=== PATIENT | female | born 1980 | race African-American/Black ===

== ENCOUNTER 2016-10-31 13:59 | Observation (INO) | payer OTHER ==
[~2016-10-31] VITALS: Ht 172.7 cm; Wt 68.1 kg
[~2016-10-31 13:59] MED LIST: ONDANSETRON HCL 4 MG/2 ML VIAL IV PUSH ONE; PROPOFOL 200 MG/20 ML AMP IV ONE
--- NOTE | 2016-10-31 14:10 | PD ---
HPI Chief Complaint: vaginal bleeding, miscarriage Time Seen by Provider: 14:07 Travel History International Travel<30 days: No Contact w/Intl Traveler<30days: No Traveled to known affect area: No History of Present Illness HPI 35-year-old female came to the emergency room with history of severe pelvic cramps and vaginal bleeding. Patient was brought by EMS from the airport. Patient is from [place] and was on her way back home when she started having the severe contractions. Patient had her last menstrual period in August 12, 2016. She was confirmed to be intrauterine in [place] and at that time she was told she was 6 weeks . However since past 4 days she has been having vaginal bleeding. She says the bleeding got worse yesterday and since 7 this morning she started having the cramps. She took Motrin but when she did not feel better she called 911. Patient is A1. She vomited once en route. Patient seems extremely uncomfortable. As soon as I went to see her she wanted something for pain and she said. PFSH Past Medical History Narrative Medical List of her past medical, social and family history as reviewed from the nursing note. Social History Tobacco Use: Yes Allergies-Medications (Allergen,Severity, Reaction): Coded Allergies: No Known Allergies (Unverified , 10/31/16) Comments No known drug allergies. Reported Meds & Prescriptions Reported Meds & Active Scripts Active Narrative Medication Awaiting for the nurse to the medical reconciliation. Review of Systems Except as stated in HPI: all other systems reviewed are Neg Physical Exam Narrative GENERAL: Awake, alert, anxious, significant distress SKIN: Warm and dry. HEAD: Atraumatic. Normocephalic. EYES: Pupils equal and round. No scleral icterus. No injection or drainage. ENT: No nasal bleeding or discharge. Mucous membranes pink and moist. NECK: Trachea midline. No JVD. CARDIOVASCULAR: Regular rate and rhythm. No murmur appreciated. RESPIRATORY: No accessory muscle use. Clear to auscultation. Breath sounds equal bilaterally. GASTROINTESTINAL: Abdomen soft, non-tender, nondistended. Hepatic and splenic margins not palpable. : External inspection showed some dried blood around the vaginal area. There was significant amount of blood in the vaginal vault. The blood soaked the large cotton swabs. The visual field was clear at this point and large part of conception was noticed to be coming out of the cervical os MUSCULOSKELETAL: No obvious deformities. No clubbing. No cyanosis. No edema. NEUROLOGICAL: Awake and alert. No obvious cranial nerve deficits. Motor grossly within normal limits. Normal speech. PSYCHIATRIC: Appropriate mood and affect; insight and judgment normal. Data Data Last Documented VS Orders Beta Hcg (Quant/Titer) (10/31/16 14:07) Complete Blood Count With Diff (10/31/16 14:07) Basic Metabolic Panel (Bmp) (10/31/16 14:07) Type And Screen (10/31/16 14:07) Ondansetron Inj (Zofran Inj) (10/31/16 14:15) Ed Poc Ultrasound (10/31/16 14:07) Morphine Inj (Morphine Inj) (10/31/16 14:15) Morphine Inj (Morphine Inj) (10/31/16 14:45) Sodium Chlor 0.9% 1000 Ml Inj (Ns 1000 M (10/31/16 14:45) Admit Order (Ed Use Only) (10/31/16 16:01) Labs MDM Medical Decision Making Medical Screen Exam Complete: Yes Emergency Medical Condition: Yes Medical Record Reviewed: Yes Differential Diagnosis Incomplete , inevitable Narrative Course 3:30 PM based on the history, pelvic exam and a bedside ultrasound I spoke with the OB occupational health professional Dr. Kaplan. I requested him to come and assess the patient. Patient was given pain medications twice by me. I just reassessed her and she seems more calm and comfortable at this point. She has been strongly requesting for a D&C. I mentioned this to the OB. Patient is O+ blood group and the beta hCG Quant was mentioned to him as well. Patient remains hemodynamically stable. H&H is stable. She is currently nothing by mouth. 3:[address] Kaplan is here to evaluate the patient and let me know his decision. 4:[address] Kaplan wants the patient to go to the OR to get the D&C. I have admitted her for observation. Critical Care Narrative Aggregate critical care time was 45 minutes. Time to perform other separately billable procedures was not included in the critical care time. My time did not include minutes spent treating any other patients simultaneously or on activities that did not directly contribute to the patient's treatment. The services I provided to this patient were to treat and/or prevent clinically significant deterioration that could result in: Incomplete , hemorrhage, intractable pain I provided critical care services requiring my management, as noted below: Chart data review, documentation time, medication orders and management, vital sign assessments/reviewing monitor data, ordering and reviewing lab tests, ordering and interpreting/reviewing x-rays and diagnostic studies, care of the patient and discussion of the patient with the admitting physicians. Procedures Procedure Narrative Emergency Department Pelvic ultrasound was performed with patient consent. The curvilinear probe was used in the transverse and sagittal views within the suprapubic region revealing no intrauterine and no gestational sac. There is heterogeneous probably products of conception and blood in the uterus. EKG Prior to Arrival: No Physician Communication Physician Communication Dr. Kaplan Diagnosis Primary Impression: Incomplete Additional Impression: Pelvic pain Admitting Information Admitting Physician Requests: Observation Scripts Oxycodone-Acetaminophen 5-325 mg Tab2 Tab PO Q4H PRN (pain 6-10) #30 TAB Prov:Albino Ferreira MD 11/01/16 Estelle Reese MD Oct 31, 2016 14:09 Rate Random Glucose 131 MG/DL Calcium Level 9.6 MG/DL Human Chorionic Gonadotropin, [address] MIU/ML Quant Blood Type O POSITIVE Antibody Screen NEGATIVE Blood Bank Comment MDM Medical Decision Making Medical Screen Exam Complete: Yes Emergency Medical Condition: Yes Medical Record Reviewed: Yes Differential Diagnosis Incomplete , inevitable Narrative Course 3:30 PM based on the history, pelvic exam and a bedside ultrasound I spoke with the OB occupational health professional Dr. Kaplan. I requested him to come and assess the patient. Patient was given pain medications twice by me. I just reassessed her and she seems more calm and comfortable at this point. She has been strongly requesting for a D&C. I mentioned this to the OB. Patient is O+ blood group and the beta hCG Quant was mentioned to him as well. Patient remains hemodynamically stable. H&H is stable. She is currently nothing by mouth. 3:[address] Kaplan is here to evaluate the patient and let me know his decision. 4:[address] Kpalan wants the patient to go to the OR to get the D&C. I have admitted her for observation. Procedures Procedure Narrative Emergency Department Pelvic ultrasound was performed with patient consent. The curvilinear probe was used in the transverse and sagittal views within the suprapubic region revealing no intrauterine and no gestational sac. There is heterogeneous probably products of conception and blood in the uterus. EKG Prior to Arrival: No Physician Communication Physician Communication Dr. Kaplan Diagnosis Primary Impression: Incomplete Additional Impression: Pelvic pain Admitting Information Admitting Physician Requests: Observation Estelle Reese MD Oct 31, 2016 14:09
[2016-10-31 14:12] VITALS: BP 135/78; PULSE 77; RESP 14; TEMP 97.8; O2SAT 100
[2016-10-31] MEDS ORDERED: ONDANSETRON HCL 4 MG/2 ML VIAL IVP ONE (14:15)
[2016-10-31] MEDS ORDERED: MORPHINE SULFATE 4 MG/ML INJ IV PUSH ONE ×2 (14:15→14:45)
[2016-10-31 14:36] LABS: AUTOMATED NEUTROPHIL # 7.8 TH/MM3 (1.8-7.7); BASOPHIL # 0.1 TH/MM3 (0-0.2); BASOPHIL % 0.5 % (0.0-2.0); EOSINOPHIL % 0.1 % (0.0-4.0); HEMATOCRIT 34.7 % (35.0-46.0); HEMO FLAGS DIFF FINAL; LYMPHOCYTE # 2.5 TH/MM3 (1.0-4.8); MEAN CELL VOLUME 91.5 FL (80.0-100.0); MEAN CORPUSCULAR HEMOGLOBIN 30.9 PG (27.0-34.0); MEAN CORPUSCULAR HGB CONC 33.8 % (32.0-36.0); MONO % 5.6 % (0.0-8.0); NEUT % 70.8 % (16.0-70.0); PLATELET COUNT 224 TH/MM3 (150-450); RED BLOOD COUNT 3.79 MIL/MM3 (4.00-5.30); RED CELL DISTRIBUTION WIDTH 13.3 % (11.6-17.2); WHITE BLOOD COUNT 11.1 TH/MM3 (4.0-11.0)
[2016-10-31] MEDS ORDERED: SODIUM CHLOR 0.9% 1000 ML INJ 1,000 ML IV ONE (14:45)
[2016-10-31 14:55] LABS: BICARBONATE 22.1 MEQ/L (21.0-32.0); POTASSIUM 3.7 MEQ/L (3.5-5.1)
--- NOTE | 2016-10-31 16:11 | PD.CONS ---
HPI Chief Complaint Abdominal pain, Date Seen: Oct 31, 2016 Time Seen: 16:13 Travel History International Travel<30 Days: No Contact w/Intl Traveler<30Days: No Known Affected Area: No History of Present Illness HPI Patient is a 35-year-old AB 1 from [place] who presents to the ED with severe abdominal pain she got an ultrasound last week which showed a gestational sac without status. Allergies-Medications (Allergen,Severity, Reaction): Coded Allergies: No Known Allergies (Unverified , 10/31/16) Physical Exam Vital Signs Date Time Temp Pulse Resp B/P Pulse Ox O2 Delivery O2 Flow Rate FiO2 10/31/16 14:12 97.8 77 14 135/78 100 Narrative GENERAL: Well-nourished, well-developed female patient. SKIN: Warm and dry. HEAD: Normocephalic and atraumatic. EYES: No scleral icterus. No injection or drainage. ENT: No nasal drainage noted. Mucous membranes pink. Airway patent. NECK: Supple, trachea midline. No JVD. CARDIOVASCULAR: Regular rate and rhythm without murmurs, gallops, or rubs. RESPIRATORY: Breath sounds equal bilaterally. No accessory muscle use. BREASTS: Bilateral exam showed no masses , no retractions, no nipple discharge. ABDOMEN/GI: Abdomen soft, non-tender, bowel sounds present, no rebound, no guarding Gravid to [-] weeks size Fundal Height: [-] GENITOURINARY: External Genitalia: intact and normal in appearance BUS glands: [-] Cervix: [-] Dilatation: [-] Effacement: [-] Station: [-] Presentation: [-] Membranes: [intact or ruptured] Uterine Contractions: [-] FHT's: Category: [-] Baseline: [-] Reactive: [-] Variability: [-] Decels: [-] EXTREMITIES: No cyanosis or edema. BACK: Nontender without obvious deformity. No CVA tenderness. NEUROLOGICAL: Awake and alert. Motor and sensory grossly within normal limits. Five out of 5 muscle strength in all muscle groups. Normal speech. Data Data Vital Signs Reviewed: Yes Orders Beta Hcg (Quant/Titer) (10/31/16 14:07) Complete Blood Count With Diff (10/31/16 14:07) Basic Metabolic Panel (Bmp) (10/31/16 14:07) Type And Screen (10/31/16 14:07) Ondansetron Inj (Zofran Inj) (10/31/16 14:15) Ed Poc Ultrasound (10/31/16 14:07) Morphine Inj (Morphine Inj) (10/31/16 14:15) Morphine Inj (Morphine Inj) (10/31/16 14:45) Sodium Chlor 0.9% 1000 Ml Inj (Ns 1000 M (10/31/16 14:45) Admit Order (Ed Use Only) (10/31/16 16:01) Labs Laboratory Tests Test 10/31/16 10/31/16 14:00 14:05 White Blood Count 11.1 Red Blood Count 3.79 Hemoglobin 11.7 Hematocrit 34.7 Mean Corpuscular Volume 91.5 Mean Corpuscular Hemoglobin 30.9 Mean Corpuscular Hemoglobin 33.8 Concent Red Cell Distribution Width 13.3 Platelet Count 224 Mean Platelet Volume 8.7 Neutrophils (%) (Auto) 70.8 Lymphocytes (%) (Auto) 23.0 Monocytes (%) (Auto) 5.6 Eosinophils (%) (Auto) 0.1 Basophils (%) (Auto) 0.5 Neutrophils # (Auto) 7.8 Lymphocytes # (Auto) 2.5 Monocytes # (Auto) 0.6 Eosinophils # (Auto) 0.0 Basophils # (Auto) 0.1 CBC Comment DIFF FINAL Differential Comment Sodium Level 139 Potassium Level 3.7 Chloride Level 107 Carbon Dioxide Level 22.1 Anion Gap 10 Blood Urea Nitrogen 8 Creatinine 0.79 Estimat Glomerular Filtration 84 Rate Random Glucose 131 Calcium Level 9.6 Human Chorionic Gonadotropin, [address] Quant Blood Type O POSITIVE Antibody Screen NEGATIVE Blood Bank Comment MDM Admitting diagnosis: incomplete Mamta Velazquez MD R1 Oct 31, 2016 16:11
--- NOTE | 2016-10-31 16:24 | HHI.HP ---
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 Para: 1 : 3 : 1 History Past Medical History Narrative Medical The patient has basically a negative medical history. She had one vaginal delivery in the past and one miscarriage. Prior but had no D&C done Obstetric History Obstetric History One vaginal delivery 1 miscarriage Past Surgical History Surgical History: No Previous Surgery Family History Family History: Negative Social History Alcohol Use: No Tobacco Use: No Substance Abuse: No Allergies-Medications (Allergen,Severity, Reaction): Coded Allergies: No Known Allergies (Unverified , 10/31/16) Review of Systems General / Constitutional: No: Fever, Weight Gain, Chills, Other Eyes: No: Diploplia, Blurred Vision, Visual changes, Pain, Photophobia HENT: No: Headaches, Vertigo, Lightheadedness Cardiovascular: No: Irregular Rhythm, Chest Pain or Discomfort, Palpitations, Tachycardia, Syncope, Varicosities, Edema, Cyanosis Respiratory: No: Cough, Short of Breath, Other Gastrointestinal: Abdominal Pain, No: Nausea, Vomiting, Diarrhea Genitourinary: Pelvic Pain, Vaginal Bleeding, No: Decreased Urinary Output, Oliguria Musculoskeletal: No: Limited ROM, Weakness, Cramping, Edema, Pain Skin: No Rash, No Itching, No Dryness, No Lumps, No Change in Pigmentation, No Change in Nails, No Alopecia, No Lesions Neurologic: No: Weakness, Dizziness, Syncope, Focal Abnormalities, Coordination Problem, Headache, Slurred Speech, Seizures Psychiatric: No: Depression, Suicidal Ideations, Homicidal Ideation Endocrine: No: Heat Intolerance, Cold Intolerance, Polydipsia, Polyuria, Other Physical Exam Vital Signs Date Time Temp Pulse Resp B/P Pulse Ox O2 Delivery O2 Flow Rate FiO2 10/31/16 14:12 97.8 77 14 135/78 100 Narrative GENERAL: Well-nourished, well-developed patient. SKIN: Warm and dry. HEAD: Normocephalic and atraumatic. EYES: No scleral icterus. No injection or drainage. ENT: No nasal drainage noted. Mucous membranes pink. Airway patent. NECK: Supple, trachea midline. No JVD. CARDIOVASCULAR: Regular rate and rhythm without murmurs, gallops, or rubs. RESPIRATORY: Breath sounds equal bilaterally. No accessory muscle use. BREASTS: Bilateral exam showed no masses , no retractions, no nipple discharge. ABDOMEN/GI: Abdomen soft, non-tender, bowel sounds present, no rebound, no guarding Gravid to [-8] weeks size GENITOURINARY: External Genitalia: intact and normal in appearance BUS glands: [-] Vagina had a moderate amount of dark red blood present with clots Cervix: [-] Cervix is open approximately 2-3 cm filled with blood clot and products of conception. In the emergency room where able to tease out the small segment of tissue as well as a large formed clot was some tissue. Our still feel the cervix was dilated and behind the cervix was significant amount of blood clot. Dilatation: [-] 2-3 Uterus is anteflexed 8 weeks size no adnexal masses and only mild to moderate pain to palpation. EXTREMITIES: No cyanosis or edema. BACK: Nontender without obvious deformity. No CVA tenderness. NEUROLOGICAL: Awake and alert. Motor and sensory grossly within normal limits. Five out of 5 muscle strength in all muscle groups. Normal speech. Data Data Orders Beta Hcg (Quant/Titer) (10/31/16 14:07) Complete Blood Count With Diff (10/31/16 14:07) Basic Metabolic Panel (Bmp) (10/31/16 14:07) Type And Screen (10/31/16 14:07) Ondansetron Inj (Zofran Inj) (10/31/16 14:15) Ed Poc Ultrasound (10/31/16 14:07) Morphine Inj (Morphine Inj) (10/31/16 14:15) Morphine Inj (Morphine Inj) (10/31/16 14:45) Sodium Chlor 0.9% 1000 Ml Inj (Ns 1000 M (10/31/16 14:45) Admit Order (Ed Use Only) (10/31/16 16:01) Labs Laboratory Tests Test 10/31/16 10/31/16 14:00 14:05 White Blood Count 11.1 Red Blood Count 3.79 Hemoglobin 11.7 Hematocrit 34.7 Mean Corpuscular Volume 91.5 Mean Corpuscular Hemoglobin 30.9 Mean Corpuscular Hemoglobin 33.8 Concent Red Cell Distribution Width 13.3 Platelet Count 224 Mean Platelet Volume 8.7 Neutrophils (%) (Auto) 70.8 Lymphocytes (%) (Auto) 23.0 Monocytes (%) (Auto) 5.6 Eosinophils (%) (Auto) 0.1 Basophils (%) (Auto) 0.5 Neutrophils # (Auto) 7.8 Lymphocytes # (Auto) 2.5 Monocytes # (Auto) 0.6 Eosinophils # (Auto) 0.0 Basophils # (Auto) 0.1 CBC Comment DIFF FINAL Differential Comment Sodium Level 139 Potassium Level 3.7 Chloride Level 107 Carbon Dioxide Level 22.1 Anion Gap 10 Blood Urea Nitrogen 8 Creatinine 0.79 Estimat Glomerular Filtration 84 Rate Random Glucose 131 Calcium Level 9.6 Human Chorionic Gonadotropin, 58376 Quant Blood Type O POSITIVE Antibody Screen NEGATIVE Blood Bank Comment Assessment/Plan Assessment and Plan This patient is a 35-year-old black female A1 in early with incomplete spontaneous . heavy bleeding& pain today. [place] is from out of [place] and was here on business and is trying bleeding go back to [place] today but and but this out because of her pain and bleeding, the patient was passed tissue as well as large blood clots. And describes severe pain in the point she can't walk, he has a quantitative hCG of just over 10,000 here in the emergency room. Bedside ultrasound to some products of conception and blood clot in the uterus. On my exam there was moderate amount of dark blood in the vagina the cervix is dilated 2-3 cm with a large amount of blood clot and some tissue in the os. The entirety of that blood clot could not be removed in the emergency room due to pain and just inability of instrumentation to get to it patient requests a D&C will proceed with that. Dr. Albino Jane is ENROLLMENT REPRESENTATIVE backup and is been contacted and will take the patient operating room for that procedure. Porfirio Kaplan II, MD Oct 31, 2016 16:24
[2016-10-31] MEDS ORDERED: OXYTOCIN 10 UNIT/ML AMP ONE ×2 (16:45→17:02)
[2016-10-31] MEDS ORDERED: MIDAZOLAM HCL 2 MG/2 ML VIAL ONE (17:52)
[2016-10-31] MEDS ORDERED: fentaNYL CITRATE 250 MCG/5 ML AMP ONE (17:52)
--- NOTE | 2016-10-31 18:30 | PD.OP ---
Operative Report Date of Surgery: Oct 31, 2016 Preoperative Diagnosis: (1) Incomplete Postoperative Diagnosis: (1) Incomplete Procedure: D&C with suction Anesthesia: general Surgeon: Albino Ferreira Lounge Car Attendant(s): Albino Alvarez MD Oct 31, 2016 18:30
[2016-10-31] MEDS ORDERED: IBUPROFEN 400 MG TAB PO PRN (18:45)
[2016-10-31] MEDS ORDERED: oxyCODONE/ACETAMINOPHEN 5 MG/325 MG TAB PO PRN ×2 (18:45)
[2016-10-31] MEDS ORDERED: *MEPERIDINE 25 MG INJ VIAL PERIprocedural Use ONLY ONE (18:58)
--- NOTE | 2016-10-31 19:52 | MP ---
cc: KINGSLEY FERREIRA DATE OF SURGERY: 10/31/2016. PREOPERATIVE DIAGNOSIS: Incomplete . POSTOPERATIVE DIAGNOSIS: Incomplete . OPERATIVE PROCEDURE PERFORMED: Dilatation and curettage with suction curet. SURGEON: Dr. Kingsley Ferreira. ANESTHESIA: General, Dr. Downs. COMPLICATIONS: None. FINDINGS: Open os with a products of conception within in the uterus. ESTIMATED BLOOD LOSS: 50 mL. DESCRIPTION OF THE PROCEDURE IN DETAIL: After informed consent, the patient was taken to the operating room where she was placed under general anesthesia and placed in the spine position with legs in the candy-cane stirrups. The abdomen, perineum were prepped and draped in the usual sterile fashion. The bladder was drained with a red Truong catheter. After adequate anesthesia was assured and the patient was prepped and draped, a time-out was taken. A speculum was placed in the vagina. The cervix was grasped with a single-tooth tenaculum. The cervix was already dilated. An 8-mm suction curette was passed to the fundus and all products of conception were evacuated. A sharp curette was passed at all four quadrants. There was no remaining products of conception. The suction curette was passed one last time. The patient tolerated the procedure well. She was extubated and taken to the recovery room in stable condition. All instrument counts were correct. There was no active bleeding at the end of procedure. MD ZOEY Martin/APRIL /6:38 PM /7:34 PM
[2016-10-31 20:00] VITALS: BP 108/69; PULSE 83; RESP 18; TEMP 97.6; O2SAT 100
[2016-11-01] VITALS: BP 122/76; PULSE 89; RESP 18; TEMP 97.2; O2SAT 100
[2016-11-01 01:46] VITALS: O2SAT 96
[2016-11-01 04:00] VITALS: BP 107/54; PULSE 72; RESP 17; TEMP 97.6; O2SAT 100
--- NOTE | 2016-11-01 07:46 | HHI.PR ---
Subjective Remarks doing well after D&C Objective Vital Signs Date Time Temp Pulse Resp B/P Pulse Ox O2 Delivery O2 Flow Rate FiO2 11/01/16 04:00 97.6 72 17 107/54 100 11/01/16 01:46 96 11/01/16 00:00 97.2 89 18 122/76 100 10/31/16 20:00 97.6 83 18 108/69 100 10/31/16 19:30 75 14 129/81 98 10/31/16 19:15 66 15 130/79 98 10/31/16 19:00 75 16 139/90 99 10/31/16 18:45 85 13 126/80 99 10/31/16 18:30 89 14 135/76 99 Room Air 10/31/16 18:22 98.8 92 15 108/65 99 Nasal Cannula 4 10/31/16 14:12 97.8 77 14 135/78 100 I/O 10/31/16 10/31/16 10/31/16 11/01/16 11/01/16 11/01/16 07:00 15:00 23:00 07:00 15:00 23:00 Intake Total 640 ml 480 ml Output Total 50 ml Balance 590 ml 480 ml Intake Oral 240 ml 480 ml Other 400 ml Output Urine Total 0 ml Estimated Blood Loss 50 ml # Voids 2 # Sanitary Pads 4 Pads Result Diagram: 10/31/16 1400 10/31/16 1400 Other Results GENERAL: SKIN: Warm and dry. HEAD: Normocephalic. EYES: No scleral icterus. No injection or drainage. NECK: Supple, trachea midline. No JVD or lymphadenopathy. GASTROINTESTINAL: Abdomen soft, non-tender, nondistended. MUSCULOSKELETAL: No cyanosis, or edema. BACK: Nontender without obvious deformity. No CVA tenderness. Assessment and Plan Problem List: (1) Incomplete Status: Acute Discharge Planning dc today Albino Ferreira MD Nov 01, 2016 07:46
[2016-11-01] MEDS ORDERED: OXYC1TAB63 PO (07:47)
--- NOTE | 2016-11-01 07:47 | HHI.DCPOC ---
Discharge Care Plan Diagnosis: (1) Incomplete Report Symptoms to Your Doctor -Temperate above 100.5 degrees -Redness, of incision or excessive or foul smelling drainage -Unusual pain or calf pain -Increased vaginal bleeding -Painful or difficulty urinating -Feelings of extreme sadness or anxiety after 2 weeks Goals to Promote Your Health * To prevent worsening of your condition and complications * To maintain your health at the optimal level Directions to Meet Your Goals Take your medications as prescribed Follow your dietary instruction Follow activity as directed Ensure plenty of rest for recovery Drink fluids for hydration Keep your appointments as scheduled Take your immunizations and boosters as scheduled If your symptoms worsen call your PCP, if no PCP go to Urgent Care Center or Emergency Room Smoking is Dangerous to Your Health. Avoid second hand smoke Call the 24-hour crisis hotline for domestic abuse at Albino Ferreira MD Nov 01, 2016 07:47
--- NOTE | 2016-11-01 07:50 | HHI.DS ---
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 Hospital Course Pt had D&C and stayed overnight and DC home today Pt Condition on Discharge: Good Discharge Disposition: Discharge Home Discharge Instructions Diet Instructions: As Tolerated, No Restrictions Activities You Can Perform: Pelvic Rest Follow up Referrals: PNEUMATIC TUBE OPERATOR - As Per Protocol @ [facility] with Albino Ferreira MD New Medications: Oxycodone-Acetaminophen (Oxycodone-Acetaminophen) 5-325 mg Tab 2 TAB PO Q4H PRN pain 6-10 #30 TAB Albino Ferreira MD Nov 01, 2016 07:50
[2016-11-01 08:00] VITALS: BP 106/69; PULSE 74; RESP 16; TEMP 97.9; O2SAT 100
== END 2016-11-01 10:14 | disposition home or self-care (01) ==
LOC: NEPE 13:59 → NEDA 16:02 → HOCA 19:49
PROVIDERS: ADMIT Obstetrics & Gynecology; ATTEND Obstetrics & Gynecology
DX: O03.4 Incomplete spontaneous abortion without complication (principal); Z3A.01 Less than 8 weeks gestation of pregnancy; R11.10 Vomiting, unspecified; F17.210 Nicotine dependence, cigarettes, uncomplicated; R10.2 Pelvic and perineal pain
CPT/HCPCS: 01965; 59820; 80048; 84702; 85025; 86850; 86900; 86901; 88305; 96361; 96374; 96375; 99291; G0378; J2175; J2250; J2270; J2405; J3010; J7030; J2590